=== PATIENT | male | born 1965 ===

== ENCOUNTER 2019-09-27 06:08 | Day surgery (SDC) | payer OTHER, SELFPAY ==
[2019-09-27 06:28] VITALS: BP 111/67; PULSE 66; RESP 18; TEMP 36.6; O2SAT 100
[2019-09-27] MEDS: Lactated Ringers 1,000 ML 100 ML IV (06:42)
--- NOTE | 2019-09-27 07:58 | W.COLOREPORT ---
Date of service: 09/27/19 Time of Service: 07:58 Colonoscopy Report Date of procedure: 09/27/19 Pre-op diagnosis general: CRC screening Post-op diagnosis procedure note: other (old healed rectal fissure) Procedure: CE Surgeon: Leonila Cordoba Anesthesia proc note operative: GETA Estimated blood loss (mL): 0 Pathology: other Complications: None Disposition: same day Prep: Miralax/Dulcolax Retraction Time: 10mins Procedure Description: After informed consent was obtained the patient was taken to the procedure room and placed in a left decubitous position. Monitors were applied and a time out was done. The patients name, date of , procedure, allergies to medications and metal in their body was reviewed. The patient was then sedated. Once sedated and comfortable a rectal exam was done. External exam was normal. Internal exam revealed a normal sphincter tone and no palpable masses. The prostate was normal. The scope was then introduced and retrofelexed. internal hemorrhoids few tags were identified. The scope was then advanced to the cecum w/out difficulty. The TI and appendiceal orifice were identified. The prep was good. The scope was then slowly retracted over 10 minutes back into the rectum., No polyps AVMs or diverticula. There is a sentinel tag in the rectum and signs fissure. This is well healed. The scope was removed and the patient was woken up and taken back to Same day surgery in stable condition. The patient tolerated the procedure well and there were no immediate complications. Follow up: The patient should follow up in 10 years unless they develop changes in bowel habits or other new gastrointestinal complaints.
--- NOTE | 2019-09-27 08:02 | W.PM.DSUDISC ---
Discharge Plan Disposition Patient Disposition: HOME Condition: Good Discharge Details Reason For Visit: colonoscopy Attending Provider: Leonila Cordoba Primary Care Provider: Teofilo Cain Home Meds and New Rx's Prescriptions: Discontinued bisacodyl [Dulcolax (bisacodyl)] 5 mg tablet,delayed release (DR/EC) 5 mg PO ONCE Qty: 4 RF: 0 polyethylene glycol 3350 17 gram/dose powder 238 g PO ONCE Qty: 238 RF: 0 polyethylene glycol 3350 [Miralax] 17 gram powder in packet 17 gm PO DAILY RF: 0 No Action hydrocortisone 2.5 % cream with applicator [place] .3x RF: 0 Discharge Instructions Instructions: Anal Fissure (GEN), High Fiber Diet (GEN) Additional Instructions: Findings: Colon- normal Anus- signs of old healed anal fissure. Follow a high fiber diet- you want to get 30grams of fiber in your diet daily. drink 8-12 glasses of water a day (coffee/soda/caffeinated beverages adn alcohol do not count) If you still find you are on the constipated side-than I recommend you start taking a fiber supplement like Metamucil or Citrucel. Follow up: PCP as needed Please call if you develop: fevers >101.5 Nausea or Vomiting Abdominal pain that is not transient DAY SURGERY UNIT POST COLONOSCOPY INSTRUCTIONS 1. Because there will be medication in your system for the next 24 hours, you may feel a little sleepy. Your coordination will be affected. Therefore: a. Do not drive or operate dangerous equipment for 24 hours. b. Do not drink alcohol beverages for 24 hours (not even beer). c. Plan to go home and rest for the day. 2. Generally there are no restrictions on your activity after a day or so has gone by, but you may feel a bit fatigued for a few days. 3 After you arrive home you may have a light meal and return to a normal diet as you can tolerate it without feeling sick to your stomach. 4. After surgery, you may feel pain or discomfort. This should be only transient, but if it persists please contact your doctor. 5. If there are any questions regarding the findings of your procedure, please feel free to contact your doctor. 6. If you are unable to contact your doctor with a problem, contact the hospital at [phone]. 7. Continue all your regular medications unless directed otherwise. I understand the above instructions and have no questions. Signature of Patient or Responsible Adult Escort Date/Time Name of Responsible Adult Escort Signature of Nurse Date/Time Stand Alone Forms: Sharath Molina (DSU) Activity:: No strenuous activity or lifting over 25 pounds x 20 Remove Dressings/Wound Care:: 24 hours Diet:: Small light meals x24 hours Discharge Orders Discharge Orders: Discharge Order (Routine); Ordered 09/27/19 Ordered By: Leonila Cordoba
[2019-09-27 08:35] VITALS: BP 102/58; PULSE 56; RESP 16; TEMP 36.4; O2SAT 100
== END 2019-09-27 10:15 | disposition home or self-care (01) ==
PROVIDERS: PCP Family Medicine; Visit Provider Surgery
PROC: 0DJD8ZZ Inspection of Lower Intestinal Tract, Via Natural or Artificial Opening Endoscopic (ICD-10-PCS; CPT 45378; principal; 2019-09-27 07:30)
DX: K64.4 Residual hemorrhoidal skin tags; K62.89 Other specified diseases of anus and rectum; Z12.11 Encounter for screening for malignant neoplasm of colon
CPT/HCPCS: 45380; J2001; J2704

== ENCOUNTER 2021-03-20 17:54 | Outpatient (REF) | payer OTHER, SELFPAY ==
[2021-03-21 08:51] LABS: Abs Immature Grans 0.02 10^3/uL (0.0-0.06); Absolute Basophil Count 0.07 10^3/uL (0.0-0.2); Absolute Eosinophil Count 0.09 10^3/uL (0.0-0.7); Absolute Lymphocyte Count 2.28 10^3/uL (1.2-3.4); Absolute Neutrophil Count 4.58 10^3/uL (1.2-6.7); Basophils % 0.9; Eosinophils % 1.2; HGB 15.2 g/dL (13.5-17.5); Immature Grans % 0.3; Lymphocytes % 30.6; MCH 28.8 pg (27.0-33.0); MCHC 32.3 % (32.0-36.0); MCV 89.2 fL (80-95); MPV 10.4 fL (8.0-11.0); Monocytes % 5.4; Neutrophils % 61.6; Nucleated RBC 0 %; Platelet Count 251 10^3/uL (130-400); RBC 5.27 10^6/uL (4.36-5.78); RDW 13.3 % (11.8-14.1); RDW-SD 43.9 fL; WBC 7.44 10^3/uL (4.4-10.8)
[2021-03-21 09:28] LABS: Anion Gap 8.9 mmol/L (3-11); BUN 17 mg/dL (7-18); CO2 28.1 mmol/L (21.0-32.0); CREATININE 0.9 mg/dL (0.70-1.30); Calcium 8.8 mg/dL (8.5-10.1); Chloride 104 mmol/L (98-107); Glucose 107 mg/dL (74-106); Potassium 4.5 mmol/L (3.5-5.1); Sodium 141 mmol/L (136-145)
== END 2021-03-20 17:55 | disposition home or self-care (01) ==
LOC: LBN 17:54
PROVIDERS: PCP Family Medicine; Visit Provider Physician Assistant Medical
DX: R42 Dizziness and giddiness (principal)
CPT/HCPCS: 80048; 85025

== ENCOUNTER 2021-03-26 14:30 | Outpatient (REF) | payer OTHER, SELFPAY ==
[2021-03-26 13:47] LABS: TSH (W/Ref FT4) 1.16 uIU/mL (0.36-3.74)
== END 2021-03-26 14:31 | disposition home or self-care (01) ==
LOC: NCHCN 14:30
PROVIDERS: PCP Family Medicine; Visit Provider Family Medicine
DX: F41.9 Anxiety disorder, unspecified (principal); R42 Dizziness and giddiness
CPT/HCPCS: 84443

== ENCOUNTER 2022-01-06 15:24 | Outpatient (REF) | payer OTHER, SELFPAY ==
[2022-01-06 17:41] LABS: Abs Immature Grans 0.01 10^3/uL (0.0-0.06); Absolute Basophil Count 0.04 10^3/uL (0.0-0.2); Absolute Eosinophil Count 0.11 10^3/uL (0.0-0.7); Absolute Monocyte Count 0.36 10^3/uL (0.1-0.8); Absolute Neutrophil Count 2.67 10^3/uL (1.2-6.7); Basophils % 0.8; Eosinophils % 2.1; HGB 15.3 g/dL (13.5-17.5); Immature Grans % 0.2; Lymphocytes % 38.5; MCH 28.3 pg (27.0-33.0); MCHC 31.9 % (32.0-36.0); MCV 88.7 fL (80-95); MPV 10.2 fL (8.0-11.0); Monocytes % 6.9; Neutrophils % 51.5; Nucleated RBC 0 %; Platelet Count 247 10^3/uL (130-400); RBC 5.41 10^6/uL (4.36-5.78); RDW 13.3 % (11.8-14.1); WBC 5.19 10^3/uL (4.4-10.8)
[2022-01-06 17:51] LABS: ALT 38 U/L (16-63); AST 24 U/L (15-37); Alkaline Phosphatase 104 U/L (46-116); Anion Gap 6.7 mmol/L (3-11); BUN 13 mg/dL (7-18); Bilirubin, Total 0.8 mg/dL (0.2-1.0); CO2 29.3 mmol/L (21.0-32.0); CREATININE 0.9 mg/dL (0.70-1.30); Calcium 8.9 mg/dL (8.5-10.1); Chloride 104 mmol/L (98-107); Glucose 86 mg/dL (74-106); Potassium 4.3 mmol/L (3.5-5.1); Sodium 140 mmol/L (136-145); Total Protein 7.3 g/dL (6.4-8.2)
== END 2022-01-06 15:25 | disposition home or self-care (01) ==
LOC: LBN 15:24
PROVIDERS: PCP Family Medicine; Visit Provider Physician Assistant Medical
DX: R22.41 Localized swelling, mass and lump, right lower limb (principal); M79.89 Other specified soft tissue disorders
CPT/HCPCS: 80053; 85025